=== PATIENT | female | born 1985 | race African-American/Black ===

== ENCOUNTER 2017-11-16 01:01 | Emergency (ER) | payer OTHER ==
[~2017-11-16] VITALS: Wt 99.8 kg
[~2017-11-16 01:01] MED LIST: 'PARAFON FORTE500 M1 PO; ALAVERT D-12 HO1 T12 PO; AMOXICILLIN500 M2 PO; AUGMENTIN 875875 MG PO; BACTRIM DS 8001 TA1 PO; BIAXIN500 MG PO; CITRUS CALCIUM200 MG PO; CORDROL20 MG PO; FLEXERIL5 MG PO; HYDROCODONE BIT1 T11 PO; HYDROCODONE/ACE1 T14 PO; IBU800 MG PO; IRON325 M1 PO; KEFLEX500 M1 PO; LISINOPRIL/HCTZ1 TA4 PO; LISINOPRIL10 MG PO; MACROBID100 M1 PO; MOTRIN600 MG PO; MOTRIN800 MG PO; Motrin,Rufen800 MG PO; NAPROSYN500 MG PO; PERCOCET 325 MG1 TA5 PO; PREDNICOT20 MG PO; PREDNISONE20 MG PO; PRENATAL1 TA1 PO; PYRIDIUM100 MG PO; Peridex 473 ML473 ML PO; TOBRADEX 0.1%-0.5 ML OPH; TORADOL10 MG PO; TRAMADOL HCL50 MG PO; TRAMADOL50 MG PO; ULTRAM50 MG PO; VITAMIN D3400 IU PO; ZANAFLEX4 M1 PO
[2017-11-16 01:30] LABS: BILIRUBIN NEGATIVE (NEGATIVE); BLOOD 2+ (NEGATIVE); CLARITY CLOUDY (CLEAR); COLOR YELLOW (YELLOW); GLUCOSE NEGATIVE (NEGATIVE); KETONE NEGATIVE (NEGATIVE); LEUKO ESTERASE 2+ (NEGATIVE); NITRITE NEGATIVE (NEGATIVE); PH 5.5 (5.0-9.0); SPECIFIC GRAVITY >= 1.030 (1.005-1.030); UROBILINOGEN 0.2 E.U./dl (0.2-1.0)
[2017-11-16 01:38] LABS: BACTERIA 1+; EPITHELIAL CELLS TNTC; RBC 41-50 rbc/hpf (0-2); WBC TNTC wbc/hpf (0-5)
[2017-11-16 02:06] LABS: BASO # 0.1 10*3/uL (0.0-0.1); BASO % 0.4 % (0.0-1.0); EOS # 0.1 10*3/uL (0.0-0.4); EOS % 0.5 % (1.0-4.0); HEMATOCRIT 36.3 % (37.0-47.0); HEMOGLOBIN 11.9 g/dl (12.0-16.0); LYMPH # 1.2 10*3/uL (1.3-4.4); LYMPH % 9.9 % (27.0-41.0); MEAN CELL VOLUME 79.4 fl (81.0-99.0); MEAN CORPUSCULAR HGB CONC 32.8 g/dl (33.0-37.0); MEAN PLATELET VOLUME 8.7 fl (9.6-12.3); MONO # 0.8 10*3/uL (0.1-1.0); MONO % 6.8 % (3.0-9.0); NEUT # 9.8 10*3/uL (2.3-7.9); PLATELET COUNT AUTOMATED 318 10*3/uL (130-400); RED BLOOD COUNT 4.57 10*6/uL (4.10-5.10); RED CELL DISTRI WIDTH 14.7 % (0-14.5)
[2017-11-16 02:21] LABS: ALBUMIN 3.5 gm/dl (3.1-4.5); ALKALINE PHOSPHATASE 72 U/L (45-117); BUN 7 mg/dl (7-24); CHLORIDE 105 mmol/L (98-107); CREATININE 0.96 mg/dL (0.55-1.02); LIPASE 64 U/L (73-393); POTASSIUM 3.5 mmol/L (3.5-5.1); SGOT/AST 41 IU/L (3-35); SGPT/ALT 62 U/L (12-78); SODIUM 138 mmol/L (136-145); TOTAL PROTEIN 7.3 gm/dL (6.4-8.2)
[2017-11-16 02:22] LABS: B-hCG (QUALITATIVE) NEGATIVE (NEGATIVE)
[2017-11-16] MEDS ORDERED: AMINOPHYLLIN200 MG PO (05:01)
[2017-11-16] MEDS ORDERED: ZOFRAN ODT4 MG SL (05:01)
[2017-11-16] MEDS ORDERED: NORCO 5-325 TA1 EACH PO (05:02)
== END 2017-11-16 05:04 | disposition home or self-care (01) ==
LOC: ED 01:01
PROVIDERS: Emergency Medicine Emergency Medical Services
DX: N10 Acute pyelonephritis (principal); F17.200 Nicotine dependence, unspecified, uncomplicated; Z90.89 Acquired absence of other organs

== ENCOUNTER 2018-05-21 09:21 | Emergency (ER) | payer OTHER ==
[~2018-05-21] VITALS: Ht 170.1 cm; Wt 104.3 kg
[~2018-05-21 09:21] MED LIST changes: +AMINOPHYLLIN200 MG PO; +NORCO 5-325 TA1 EACH PO; +ZOFRAN ODT4 MG SL
[2018-05-21] MEDS ORDERED: CYCLOBENZAPRINE10 MG PO (10:21)
[2018-05-21] MEDS ORDERED: PREDNISONE50 MG PO (10:21)
== END 2018-05-21 10:31 | disposition home or self-care (01) ==
LOC: ED 09:21
DX: M54.41 Lumbago with sciatica, right side (principal); F17.200 Nicotine dependence, unspecified, uncomplicated

== ENCOUNTER 2018-11-05 13:47 | Emergency (ER) | payer OTHER ==
[~2018-11-05] VITALS: Ht 170.1 cm; Wt 104.3 kg
[~2018-11-05 13:47] MED LIST changes: +CYCLOBENZAPRINE10 MG PO; +PREDNISONE50 MG PO
[2018-11-05] MEDS ORDERED: AMOXICILLIN500 M2 PO (14:17)
== END 2018-11-05 14:30 | disposition home or self-care (01) ==
LOC: ED 13:47
DX: O99.511 Diseases of the respiratory system complicating pregnancy, first trimester (principal); J32.9 Chronic sinusitis, unspecified; F17.200 Nicotine dependence, unspecified, uncomplicated; Z3A.01 Less than 8 weeks gestation of pregnancy

== ENCOUNTER → 2019-03-19 | Outpatient (CLI) | payer OTHER | END | disposition home or self-care (01) | LOC: RESCLI 00:56 | DX: I10 Essential (primary) hypertension (principal); D64.9 Anemia, unspecified; F17.200 Nicotine dependence, unspecified, uncomplicated; Z79.899 Other long term (current) drug therapy ==

== ENCOUNTER → 2019-04-23 | Outpatient (CLI) | payer OTHER | END | disposition home or self-care (01) | LOC: RESCLI 01:09 | DX: I10 Essential (primary) hypertension (principal); D57.3 Sickle-cell trait; E66.9 Obesity, unspecified; Z86.2 Personal history of diseases of the blood and blood-forming organs and certain disorders involving the immune mechanism; Z72.0 Tobacco use; Z79.899 Other long term (current) drug therapy; Z88.8 Allergy status to other drugs, medicaments and biological substances ==

== ENCOUNTER 2019-07-15 06:22 | Emergency (ER) | payer OTHER ==
[~2019-07-15] VITALS: Ht 170.1 cm; Wt 95.3 kg
[2019-07-15] MEDS ORDERED: ZITHROMAX250 MG PO (07:35)
== END 2019-07-15 07:39 | disposition home or self-care (01) ==
LOC: ED 06:22
DX: J40 Bronchitis, not specified as acute or chronic (principal); I10 Essential (primary) hypertension; M19.90 Unspecified osteoarthritis, unspecified site

== ENCOUNTER → 2022-01-24 | Outpatient (CLI) | payer OTHER ==
[~2022-01-24] MED LIST changes: +ZITHROMAX250 MG PO
== END | disposition home or self-care (01) ==
LOC: RESCLI 09:03
PROVIDERS: ATTEND Student in an Organized Health Care Education/Training Program
DX: I10 Essential (primary) hypertension (principal); M54.42 Lumbago with sciatica, left side; Z72.0 Tobacco use; Z79.899 Other long term (current) drug therapy; F17.200 Nicotine dependence, unspecified, uncomplicated; Z90.49 Acquired absence of other specified parts of digestive tract

== ENCOUNTER 2023-03-04 17:06 | Emergency (ER) | payer OTHER ==
[~2023-03-04] VITALS: Ht 167.6 cm; Wt 96.2 kg
== END 2023-03-04 19:39 | disposition home or self-care (01) ==
LOC: ED 17:06
DX: S92.352A Displaced fracture of fifth metatarsal bone, left foot, initial encounter for closed fracture (principal); F17.200 Nicotine dependence, unspecified, uncomplicated; Z90.89 Acquired absence of other organs; Z96.22 Myringotomy tube(s) status; Z90.49 Acquired absence of other specified parts of digestive tract; W18.09XA Striking against other object with subsequent fall, initial encounter; Y93.89 Activity, other specified; Y92.098 Other place in other non-institutional residence as the place of occurrence of the external cause; Y99.8 Other external cause status